=== PATIENT | male | born 1985 | race Caucasian/White ===

== ENCOUNTER → 2024-12-14 | Emergency (ER) | payer OTHER ==
[~2024-12-14] VITALS: Ht 182.9 cm; Wt 72.7 kg
[2024-12-14 17:57] VITALS: BP 128/90; PULSE 105; RESP 22; TEMP 98.8; O2SAT 99
== END | disposition still patient (30) ==
LOC: EMS 17:53
DX: R25.1 Tremor, unspecified (principal); Z53.29 Procedure and treatment not carried out because of patient's decision for other reasons
CPT/HCPCS: 99283; Z7502